=== PATIENT | female | born 1965 | race Caucasian/White ===

== ENCOUNTER 2018-04-11 00:24 | Emergency (ER) | payer OTHER ==
[~2018-04-11] VITALS: Ht 160 cm; Wt 81.6 kg
[2018-04-11 00:40] VITALS: BP 139/71
== END 2018-04-11 04:35 | disposition home or self-care (01) ==
LOC: ER 00:24
DX: S22.42XA Multiple fractures of ribs, left side, initial encounter for closed fracture (principal); V49.9XXA Car occupant (driver) (passenger) injured in unspecified traffic accident, initial encounter; Y93.89 Activity, other specified; Y92.410 Unspecified street and highway as the place of occurrence of the external cause; Y99.8 Other external cause status
CPT/HCPCS: 71101

== ENCOUNTER 2020-08-03 16:53 | Emergency (ER) | payer OTHER ==
[~2020-08-03] VITALS: Ht 160 cm; Wt 113.4 kg
[2020-08-03 19:00] VITALS: BP 132/78
[2020-08-03] MEDS ORDERED: KETOROLAC TROMETH 60MG/2ML VIAL IM ONE (20:30)
== END 2020-08-03 20:55 | disposition home or self-care (01) ==
LOC: ER 16:53
DX: S86.912A Strain of unspecified muscle(s) and tendon(s) at lower leg level, left leg, initial encounter (principal); X58.XXXA Exposure to other specified factors, initial encounter; Y93.89 Activity, other specified; Y92.89 Other specified places as the place of occurrence of the external cause; Y99.8 Other external cause status
CPT/HCPCS: 73562; 73610; 93971; 96372; 99284; J1885

== ENCOUNTER 2024-11-06 13:23 | Emergency (ER) | payer MEDICAID, OTHER ==
[~2024-11-06] VITALS: Ht 157.5 cm; Wt 80.0 kg
[2024-11-06] MEDS ORDERED: ONDANSETRON HCL 4 MG/2 ML VIAL IV ONE (14:00)
--- NOTE | 2024-11-06 14:00 | ED.PDOC ---
GI ASSESSMENT HPI Comments 59 year old female presents to the ED with chief complaint of generalized weakness and N/V/D. Patient reports that she has been experiencing generalized weakness for about a month now with associated N/V/D, congestion, headache, fever, and cough for the past 5 days. Patient relays that her family is all sick at home at this time with similar symptoms. Patient denies any SOB, chest pain, dysuria, abdominal pain, chills, or dizziness. Chief Complaint: General Weakness Time Seen by MD: 13:54 Primary Care Provider: NONE Reviewed Notes: Nurses Notes, Medications, Allergies Allergies: Coded Allergies: Codeine (Verified Allergy, Severe, 04/11/18) Information Source: Patient Mode of Arrival: Wheelchair Timing: Weeks Duration: Since onset Prehospital treatment: None Quality: Aching Vomitus: Watery Stool: Watery Severity: Moderate Recent: None Recent Hx of: None Pain Location: None Modifying Factors: Nothing Associated sign and symptoms: Nausea, Vomiting, Diarrhea, Fever Past Medical History PAST MEDICAL HISTORY: Denies Surgical History: FURNITURE DUSTER History: No Pertinent FURNITURE DUSTER History Family History Family History: Reviewed,noncontributory to illness, No family hx of DM, No family hx of Heart eneida, No family hx of HTN, No family hx ofKidney eneida, No family hx of Liver eneida, No family hx of Lung eneida, No family hx of Stroke, Family hx of Cancer Social History Smoker: Cigarettes Alcohol: Occasionally Drugs: Marijuana Lives In: Home Constitutional: reports: fever, weakness; denies: chills, diaphoresis, fatigue, malaise, sweats, others EENTM: reports: nose congestion; denies: blurred vision, double vision, ear bleeding, ear discharge, ear drainage, ear pain, ear ringing, eye pain, eye redness, hearing loss, mouth pain, mouth swelling, nasal discharge, nose blee ding, nose pain, photophobia, tearing, throat pain, throat swelling, voice changes, others Respiratory: reports: cough; denies: hemoptysis, orthopnea, SOB at rest, shortness of breath, SOB with excertion, stridor, wheezing, others Cardiovascular: denies: chest pain, dizzy spells, diaphoresis, Dyspnea on exertion, edema, irregular heart beat, left arm pain, lightheadedness, palpitations, PND, syncope, others Gastrointestinal: reports: diarrhea, nausea, vomiting; denies: abdomen distende d, abdominal pain, blood streaked bowels, constipated, dysphagia, difficulty swallowing, hematemesis, melena, poor appetite, poor fluid intake, rectal bleeding, rectal pain, others Genitourinary: denies: abnormal vagina bleeding, burning, dyspareunia, dysuria, flank pain, frequency, hematuria, incontinence, pain, , vagina discharge, urgency, others Neurological: reports: headache; denies: dizziness, fainting, left sided numbness, left sided weakness, numbness, paresthesia, pre-existing deficit, right sided numbness, right sided weakness, seizure, speech problems, tingling, tremors, weakness, others Musculoskeletal: denies: back pain, gout, joint pain, joint swelling, muscle pain, muscle stiffness, neck pain, others Integumetry: denies: bruises, change in color, change in hair/nails, dryness, laceration, lesions, lumps, rash, wounds, others Allergic/Immunocompromised: denies: Difficulty Healing, Frequent Infections, Hives, Itching, others Hematologic/Lymphatic: denies: anemia, blood clots, easy bleeding, easy bruising, swollen glands, others Endocrine: denies: excessive hunger, excessive sweating, excessive thirst, excessive urination, flushing, intolerance to cold, intolerance to heat, unexplained weight gain, unexplained weight loss, others Psychiatric: denies: anxiety, bipolar disorder, depression, hopeless, panic disorder, schizophrenia, sleepless, suicidal, others All Other Systems: Reviewed and Negative Physical Exam General Appearance: Moderate Distress, Obese HEENT: Normal ENT Inspection, Pharynx Normal, TMs Normal Neck: Full Range of Motion, Non-Tender, Normal, Normal Inspection Respiratory: Chest Non-Tender, Lungs Clear, No Accessory Muscle Use, No Respiratory Distress, Normal Breath Sounds Cardiovascular: No Edema, No JVD, No Murmur, No Gallop, Normal Peripheral Pulses, Regular Rate/Rhythm Breast Exam: Deferred Gastrointestinal: No Organomegaly, Non Tender, No Pulsatile Mass, Normal Bowel Sounds, Soft Genitalia: Deferred Pelvic: Deferred Rectal: Deferred Extremities: No calf tenderness, Normal capillary refill, Normal inspection, Normal range of motion, Non-tender, No pedal edema Musculoskeletal : Apperance: Normal Neurologic: Alert, 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 Was a procedure done?: No GI differential Dx Differential Diagnosis: Gastritis/PUD, Gastroenteritis, UTI, Electrolyte Imbalance X-Ray, Labs, Meds, VS Vital Signs Date Time Temp Pulse Resp B/P (MAP) Pulse Ox O2 Delivery O2 Flow Rate FiO2 11/06/24 16:05 99.0 98 18 135/86 (102) 92 99.0 11/06/24 14:00 89 11/06/24 13:52 89 11/06/24 13:40 99.9 92 16 150/93 (112) 91 Lab Test 11/06/24 14:09 Range/Units White Blood Count 4.7 4.4-10.8 10^3/uL Red Blood Count 5.01 4.0-5.20 10^6/uL Hemoglobin 16.1 12.2-16.2 g/dL Hematocrit 47.1 H 36.0-46.0 % Mean Corpuscular Volume 93.9 80.0-100.0 fL Mean Corpuscular Hemoglobin 32.0 28.0-32.0 pg Mean Corpuscular Hemoglobin Concent 34.1 32.0-36.0 g/dL Red Cell Distribution Width 14.5 H 11.8-14.3 % Platelet Count 342 140-450 10^3/uL Mean Platelet Volume 6.8 L 6.9-10.8 fL Neutrophils (%) (Auto) 78.0 37.0-80.0 % Lymphocytes (%) (Auto) 11.2 10.0-50.0 % Monocytes (%) (Auto) 10.1 0.0-12.0 % Eosinophils (%) (Auto) 0.1 0.0-7.0 % Basophils (%) (Auto) 0.6 0.0-2.0 % Neutrophils # (Auto) 3.7 1.6-8.6 10 ^3/uL Lymphocytes # (Auto) 0.5 0.4-5.4 10 ^3/uL Monocytes # (Auto) 0.5 0-1.3 10 ^3/uL Eosinophils # (Auto) 0 0-0.8 10 ^3/uL Basophils # (Auto) 0 0-0.2 10 ^3/uL Nucleated Red Blood Cells 0.1 % Sodium Level 134 L 136-145 mmol/L Potassium Level 4.6 3.5-5.1 mmol/L Chloride Level 101 98-107 mmol/L Carbon Dioxide Level 27 20-31 mmol/L Anion Gap 6 5-15 Blood Urea Nitrogen 13 9-23 mg/dL Creatinine 0.89 0.550-1.02 mg/dL Glomerular Filtration Rate Calc 74 >90 mL/min BUN/Creatinine Ratio 14.6 10.0-20.0 Serum Glucose 125 H 74-106 mg/dL Calcium Level 9.6 8.7-10.4 mg/dL Total Bilirubin 0.3 0.2-1.0 mg/dL Aspartate Amino Transferase (AST) 22 13-40 U/L Alanine Aminotransferase (ALT) 26 7-40 U/L Alkaline Phosphatase 108 46-116 U/L Total Protein 7.1 5.7-8.2 g/dL Albumin 4.2 3.2-4.8 g/dL CT Abd/Pel indicates: 1. Nonspecific 4.3 cm heterogeneous mass in the left adrenal gland with both hypodense and hyperdense contents. Further evaluation with MRI abdomen with contrast and in and out of phase imaging is recommended. 2. Sigmoid diverticulosis. 3. Bulky uterus with likely an anterior body fibroid. The patient's CBC and chemistry panel are within normal limits An IV Hep-Lock was established The patient was being given Zofran 4 mg IV push for the nausea and vomiting The patient was being admitted Images Reviewed?: Images reviewed and evaluated by me Time of 1ST Reevaluation: 18:58 Reevaluation 1ST: Unchanged Patient Education/Counseling: Diagnosis, Treatment, Prognosis Family Education/Counseling: No Family Present Departure 1 Departure Time of Disposition: 18:57 Impression: Primary Impression: Generalized weakness Additional Impressions: Nausea & vomiting Qualified Codes: R11.14 - Bilious vomiting Diarrhea Qualified Codes: R19.7 - Diarrhea, unspecified Disposition: 09 ADMITTED INPATIENT Admit to: Med Surg Condition: Fair Critical Care Note Critical Care Time?: No Stability Stability form required: Yes Unstable for transfer: ED Physician Assesment (Clinical assesment) Heart Score Heart Score: Heart Score Response (Comments) Value History N/A 0 EKG N/A 0 Age N/A 0 Risk Factors N/A 0 Troponin N/A 0 Total 0 I personally scribed for KIMBERLEY VERDUZCO MD ([email or web address]) on 11/06/24 at 14:00. Electronically submitted by Dmitriy Orozco ([email or web address]). I personally scribed for KIMBERLEY VERDUZCO MD ([email or web address]) on 11/06/24 at 14:02. Electronically submitted by Dmitriy Orozco ([email or web address]). I personally scribed for KIMBERLEY VERDUZCO MD ([email or web address]) on 11/06/24 at 14:24. Electronically submitted by Dmitriy Orozco ([email or web address]). KIMBERLEY VERDUZCO MD Nov 06, 2024 14:00
--- NOTE | 2024-11-06 14:19 | DVH ---
CT ABDOMEN AND PELVIS WITHOUT CONTRAST CLINICAL HISTORY: pain TECHNIQUE: Multiple contiguous axial images of the abdomen and pelvis without intravenous contrast. The images were reformatted degenerate coronal and sagittal reconstructions. All CT scans at this medical facility are performed using dose modulation techniques as appropriate t o a performed exam including the following:Automated exposure control was utilized; adjustment of the MA and/or KV according to patient size; and use of iterative reconstruction technique. Radiation Dose Information: CT Dose: CTDI volume is 16 mGy. Dose-length product is 916 mGy*cm Comparison: None FINDINGS: Evaluation of the abdomen and pelvis is limited without intravenous contrast. There is a 4.3 cm heterogeneous mass in the left adrenal gland with mixed hypodense and hyperdense co ntents. The right adrenal gland appears within normal limits.. The liver, gallbladder, pancreas, kidneys, and spleen appear within normal limits. There is no gross evidence of abdominal lymphadenopathy. There is no free fluid or free air. The stomach grossly appears unremarkable. The small and large bowel loops demonstrate normal caliber . There are diverticula in the sigmoid colon without evidence of acute diverticulitis. The abdominal aorta and IVC appear within normal limits. The bladder appears unremarkable for the degree of distention. The uterus appears bulky with likely a an anterior body fibroid.. There is no gross evidence of a pelvic mass. There is no free fluid yudith ection. Lung bases are clear. There is no acute osseous abnormality. IMPRESSION: 1. Nonspecific 4.3 cm heterogeneous mass in the left adrenal gland with both hypodense and hyperdense contents. Further evaluation with MRI abdomen with contrast and in and out of phase imaging is recom mended. 2. Sigmoid diverticulosis. 3. Bulky uterus with likely an anterior body fibroid. HS:Y
[2024-11-06 14:24] LABS: Basophils # (auto) 0 10 ^3/uL (0-0.2); Basophils % (auto) 0.6 % (0.0-2.0); Eosinophils # (auto) 0 10 ^3/uL (0-0.8); Eosinophils % (auto) 0.1 % (0.0-7.0); Hematocrit 47.1 % (36.0-46.0); Hemoglobin 16.1 g/dL (12.2-16.2); Lymphocytes # (auto) 0.5 10 ^3/uL (0.4-5.4); Lymphocytes % (auto) 11.2 % (10.0-50.0); Mean Corpuscular Hgb Conc. 34.1 g/dL (32.0-36.0); Mean Corpuscular Volume 93.9 fL (80.0-100.0); Monocytes # (auto) 0.5 10 ^3/uL (0-1.3); Monocytes % (auto) 10.1 % (0.0-12.0); Neutrophils # (auto) 3.7 10 ^3/uL (1.6-8.6); Nucleated Red Blood Cells % 0.1 %; Platelet Count (auto) 342 10^3/uL (140-450); Red Blood Cells 5.01 10^6/uL (4.0-5.20); Red Cell Distribution Width 14.5 % (11.8-14.3); White Blood Cell 4.7 10^3/uL (4.4-10.8)
[2024-11-06 14:39] LABS: Alanine Aminotransferase 26 U/L (7-40); Albumin 4.2 g/dL (3.2-4.8); Alkaline Phosphatase 108 U/L (46-116); Anion Gap 6 (5-15); Aspartate Aminotransferase 22 U/L (13-40); BUN/Creatinine Ratio 14.6 (10.0-20.0); Blood Urea Nitrogen 13 mg/dL (9-23); Calcium 9.6 mg/dL (8.7-10.4); Carbon Dioxide 27 mmol/L (20-31); Chloride 101 mmol/L (98-107); Potassium 4.6 mmol/L (3.5-5.1); Total Protein 7.1 g/dL (5.7-8.2)
[2024-11-06 14:43] LABS: Bilirubin, Total 0.3 mg/dL (0.2-1.0); Glucose 125 mg/dL (74-106); Sodium 134 mmol/L (136-145)
[2024-11-06 16:05] VITALS: BP 135/86; PULSE 98; RESP 18; TEMP 99; O2SAT 92
--- NOTE | 2024-11-07 02:06 | ECG ---
[facility] Test Date: 2024-11-06 Test Time: 13:50:54 Pat Name: KATRINA DEE Department: ER Room: Gender: F Assistant Counsel: SILVESTRE : 1965 Requested By: KIMBERLEY VERDUZCO Order Number: [id number] Reading MD: Milton Rosa Measurements Intervals [place] Rate: 89 P: 63 CT: 122 QRS: 44 QRSD: 88 T: 37 QT: 375 QTc: 457 Interpretive Statements Sinus rhythm Low voltage, precordial leads Electronically Signed On 11-09-2024 10:24:01 PST by Milton Rosa Please click the below link to view image of tracing.
== END 2024-11-06 23:31 | disposition left against medical advice (07) ==
LOC: ER 13:23
DX: R53.1 Weakness (principal); R11.2 Nausea with vomiting, unspecified; R19.7 Diarrhea, unspecified; F17.210 Nicotine dependence, cigarettes, uncomplicated; Z88.5 Allergy status to narcotic agent; Z98.890 Other specified postprocedural states
CPT/HCPCS: 36415; 74176; 80053; 85025; 93005